=== PATIENT | male | born 2005 | race Caucasian/White ===

== ENCOUNTER 2024-09-13 13:37 | Emergency (ER) | payer OTHER, SELFPAY ==
[2024-09-13 13:41] VITALS: BP 139/94
--- NOTE | 2024-09-13 13:55 | ED.SKININJ ---
HPI-Injury
General
Chief Complaint: Bite
Source: patient
Exam Limitations: none
Time Seen by Provider: 09/13/24 13:44
History of Present Illness-Injury
Initial Injury comments:
19yoM with a history of stage III Lyme disease presenting with his mother for evaluation after several bee stings. Patient was weed whacking outside about an hour ago. He was stung several times by yellow jackets in his left wrist, left axilla,
and right ankle. He came immediately to the ED. He reports some pain at the sting sites and feeling like his throat is dry. No hives, vomiting, diarrhea, dysphagia, shortness of breath. Patient states his 'arm blew up' after the last time he was
stung by a yellow jacket and had some localized swelling to the extremity which was treated with PO steroids.
Phy Exam
General Physical Exam
General Presentation: well appearing and no apparent distress
General Skin: warm and dry
General Habitus: normal
General Mental: alert
ENT Exam
ENT Exam: pharynx normal, normocephalic and other (No oropharyngeal swelling. Airway patent. Normal phonation.)
Cardiovascular Exam
Cardiovascular Exam: regular rate/rhythm
Pulmonary Exam
Pulmonary Exam: lungs clear, no respiratory distress, no rales, no crackles, no rhonchi, no stridor and no wheezing
Neurological Exam
Neurological Exam: alert
Gustavo Coma Scale
Eye Opening: Spontaneous
Verbal Response: Oriented
Motor Response: Obeys Commands
GCS Total Score: 15
Skin Exam
Skin Exam: warm/dry and other (Small bee stings noted to extremities. No urticaria.)
Psychiatric Exam
Psychiatric Exam: normal mood/affect
Course
Orders/Labs/Results
Orders:
Orders
09/13/24 13:51
Dexamethasone [Decadron] 10 mg PO NOW STA
09/13/24 14:36
Ibuprofen [Motrin] 600 mg .ROUTE .STK-MED ONE
Ibuprofen [Motrin] 600 mg PO NOW STA
Vital Signs
Initial and Last Documented VS:
Initial Vital Signs
Pulse Resp BP Pulse Ox
108 18 139/94 100
09/13/24 13:41 09/13/24 13:41 09/13/24 13:41 09/13/24 13:41
Last Documented Vital Signs
Pulse Resp BP Pulse Ox
108 18 139/94 100
09/13/24 13:41 09/13/24 13:41 09/13/24 13:41 09/13/24 13:57
MDM/Problems Addressed
Differential Diagnosis Includes:
19yoM here after multiple yellow jacket stings. Only symptom is localized pain. He is well appearing in no distress. There is no urticaria or soft tissue swelling noted. No angioedema. Lungs clear to auscultation without wheezing. No clinical
evidence of allergic reaction. Patient has required p.o. steroids in the past so will give dose of Decadron. Patient stable for discharge. Supportive care reviewed and ED return precautions discussed.
*Pulse Oximetry
SaO2: 100
Oxygen Mode of Delivery: Room air
Patient hypoxic: no (100%)
*Critical Care Note
Total Time (30-74mins, 75-104mins- exclusive of procedures): Not Applicable
ED Attending Note
-
Portions of this chart may have been created with voice recognition software.� Occasional wrong word or��sound alike� substitutions may have occurred due to the inherent limitations of voice recognition software.
Discharge Plan
Departure
Patient Disposition: Home (Routine Discharge)
Date of Disposition: 09/13/24
Time of Disposition: 14:36
Patient with high blood pressure during this ER visit?: Yes
Discharge Problem:
Bee sting
Instructions: Insect bites and stings - ED discharge instructions
Referrals:
UNKNOWN - PT DOES,NOT KNOW [Family Provider]
Activity Restrictions/Additional Instructions:
Take Benadryl 25 mg every 6 hours as needed for itching.
Please follow-up with your family doctor. Return to the ER with any worsening symptoms including trouble breathing or swallowing.
Interventions
Interventions:
*Risk Screen - Suicide Last Done: 09/13/24 13:41
*General Assessment Last Done: 09/13/24 13:41
*ED- Fall Risk Assessment Last Done: 09/13/24 13:41
*ED COVID-19 Vaccine History Last Done: 09/13/24 13:41
*Nursing Disposition Last Done: 09/13/24 14:42
Discharge Date and Time
Discharge Date/Time: 09/13/24 14:43
Print Language: [place]
[2024-09-13] MEDS: DECADRON 10 MG PO (14:14)
[2024-09-13] MEDS: MOTRIN 600 MG PO (14:38)
== END 2024-09-13 14:43 | disposition home or self-care (01) ==
LOC: EMR 13:37
PROVIDERS: EMERGENCY PHYSICIAN Student in an Organized Health Care Education/Training Program
DX: T63.441A Toxic effect of venom of bees, accidental (unintentional), initial encounter (principal); M25.532 Pain in left wrist; M79.622 Pain in left upper arm; M25.571 Pain in right ankle and joints of right foot; R03.0 Elevated blood-pressure reading, without diagnosis of hypertension; A69.20 Lyme disease, unspecified
CPT/HCPCS: 99283